=== PATIENT | male | born 1950 ===

== ENCOUNTER 2021-11-27 06:00 | Day surgery (SDC) | payer OTHER ==
[~2021-11-27 06:00] MED LIST: ISOSORBIDE DINI30 MG PO; JARDIANCE25 MG PO; LIPITOR40 M1 PO; METFORMIN HCL1000 M2 PO; NORVASC5 MG PO; PLAVIX75 MG PO; TOPROL XL100 M1 PO; VASOTEC20 M1 PO
== END 2021-11-27 14:45 | disposition home or self-care (01) ==
LOC: CIR.AMB 06:00
PROVIDERS: ATTEND Surgery
DX: D17.1 Benign lipomatous neoplasm of skin and subcutaneous tissue of trunk (principal); Z20.822 Contact with and (suspected) exposure to COVID-19; I10 Essential (primary) hypertension; Z95.5 Presence of coronary angioplasty implant and graft; J45.909 Unspecified asthma, uncomplicated; E11.9 Type 2 diabetes mellitus without complications; Z79.02 Long term (current) use of antithrombotics/antiplatelets; Z79.84 Long term (current) use of oral hypoglycemic drugs